=== PATIENT | female | born 1945 | race Caucasian/White ===

== ENCOUNTER 2023-12-01 07:09 | Emergency (ER) | payer MEDICARE, OTHER, SELFPAY ==
[2023-12-01 07:15] VITALS: BP 99/49
[2023-12-01 07:25] VITALS: BP 93/70
[2023-12-01 07:31] VITALS: BP 94/48
[2023-12-01 07:38] VITALS: BMI 29.7
--- NOTE | 2023-12-01 07:40 | ED.GENMED ---
History of Present Illness
<Antonio Walter MD, Resident - Last Filed: 12/01/23 13:27>
General
Chief Complaint: Heart Rate Problem
Source: patient and records
Time Seen by Provider: 12/01/23 07:24
Travel History
Have you traveled to any high risk areas for coronavirus over the past 14 days?: No
Have you had any contact with someone who has COVID-19?: No
Do you have any symptoms of coronavirus? Fever > 100 degrees, chills, cough, shortness of breath, sore throat, loss of taste or smell, muscle aches, or headache?: No
History of Present Illness
History of Present Illness:
Theodora De Santiago, 78-year-old female with paroxysmal atrial fibrillation, has had palpitations since last night. She usually takes diltiazem 60 mg but took 120 mg before going to bed since she felt that she was in atrial fibrillation. She woke up with
persistent symptoms at 3 AM and again at 4-5 AM; took diltiazem 60 mg each time, for a total of 240 mg diltiazem since last night. Continues to experience 'irregular heart beats' at present. Denies shortness of breath, lightheadedness, dizziness,
cough, chest pain/tightness, blurry vision, balancing difficulties, extremity edema or fatigue. Denies recent illnesses or changes to her medications. She did take apixaban this morning before coming to the emergency.
Past History
<Antonio Walter MD, Resident - Last Filed: 12/01/23 13:27>
Past History
ED Past Medical History: Arrthythmia (paroxysmal atrial fibrillation), HTN, Hypercholesterolemia, Psychiatric (anxiety) and Other (OA)
Social History
Tobacco: Non-smoker
Alcohol: Occasional
Drug: None
Personal:
Living: with family
Employment: Retired
Review of Systems
<Antonio Walter MD, Resident - Last Filed: 12/01/23 13:27>
Review of Systems
All Other Systems: Not applicable
Constitutional: Reports no symptoms
EENT: Reports no symptoms
Respiratory: Reports no symptoms
Cardiac: Reports palpitations
ABD/GI: Reports no symptoms
: Reports no symptoms
Musculoskeletal: Reports no symptoms
Skin: Reports no symptoms
Neurological: Reports no symptoms
Endocrine: Reports no symptoms
Hematologic/Lymphatic: Reports no symptoms
Psychiatric: Reports no symptoms
Phy Exam
<Antonio Walter MD, Resident - Last Filed: 12/01/23 13:27>
General Physical Exam
General Presentation: well appearing and no apparent distress
General Skin: warm and dry
General Habitus: normal
General Mental: alert
General Hydration: appears well hydrated
ENT Exam
ENT Exam: EOMI, pharynx normal, neck supple and normocephalic
Eye Exam
Eye Exam: PERRL, cornea clear and conjunctiva normal
Cardiovascular Exam
Cardiovascular Exam: no edema, no murmur, normal peripheral pulses and bradycardia
Pulmonary Exam
Pulmonary Exam: lungs clear, no respiratory distress, no rales, no crackles, no rhonchi, no stridor, no wheezing and no cough
Gastrointestinal Exam
Gastrointestinal Exam: normal bowel sounds, non tender, soft, no organomegaly, no pulsatile mass and non distended
Neurological Exam
Neurological Exam: alert, oriented x3, no motor deficits and speech normal
Musculoskeletal Exam
Musculoskeletal Exam: full ROM and no edema
Skin Exam
Skin Exam: normal color, warm/dry, no rash and no petechia
Psychiatric Exam
Psychiatric Exam: normal mood/affect
Course
<Antonio Walter MD, Resident - Last Filed: 12/01/23 13:27>
Orders/Labs/Results
Orders:
Orders
12/01/23 07:10
Electrocardiogram (*1) Urgent
Reason for Study: Atrial Fibrillation
EKG- Treatment ONCE
12/01/23 07:44
CMP [Comprehensive Metabolic Panel] Urgent
Complete Blood Count/With Diff Urgent
Magnesium Urgent
Comment: ADD ON
TSH Reflex To Free T4 Urgent
Comment: ADD ON
12/01/23 08:02
Add On- LAB Urgent
Tests Added?: Mg; TSH with reflex to T4
Abnormal Lab Results
12/01/23
07:44
Absolute Monos (auto) 0.9 H 10^3/uL
(0.1-0.6)
Monocytes % 11.2 H %
(1.7-9.3)
Chloride 97 L mmol/L
(98-107)
Glucose 109 H mg/dl
(70-99)
12/01/23 07:44
12/01/23 07:44
Vital Signs
Initial and Last Documented VS:
Initial Vital Signs
Temp Pulse Resp BP Pulse Ox
98.1 F 62 18 99/49 97
12/01/23 07:15 12/01/23 07:15 12/01/23 07:15 12/01/23 07:15 12/01/23 07:15
Last Documented Vital Signs
Temp Pulse Resp BP Pulse Ox
98.1 F 56 10 114/59 99
12/01/23 07:15 12/01/23 10:45 12/01/23 10:45 12/01/23 10:00 12/01/23 10:45
<Ulises Purdy MD - Last Filed: 12/01/23 13:43>
Orders/Labs/Results
Orders:
Orders
12/01/23 07:10
Electrocardiogram (*1) Urgent
Reason for Study: Atrial Fibrillation
EKG- Treatment ONCE
12/01/23 07:44
CMP [Comprehensive Metabolic Panel] Urgent
Complete Blood Count/With Diff Urgent
Magnesium Urgent
Comment: ADD ON
TSH Reflex To Free T4 Urgent
Comment: ADD ON
12/01/23 08:02
Add On- LAB Urgent
Tests Added?: Mg; TSH with reflex to T4
Abnormal Lab Results
12/01/23
07:44
Absolute Monos (auto) 0.9 H 10^3/uL
(0.1-0.6)
Monocytes % 11.2 H %
(1.7-9.3)
Chloride 97 L mmol/L
(98-107)
Glucose 109 H mg/dl
(70-99)
12/01/23 07:44
12/01/23 07:44
Vital Signs
Initial and Last Documented VS:
Initial Vital Signs
Temp Pulse Resp BP Pulse Ox
98.1 F 62 18 99/49 97
12/01/23 07:15 12/01/23 07:15 12/01/23 07:15 12/01/23 07:15 12/01/23 07:15
Last Documented Vital Signs
Temp Pulse Resp BP Pulse Ox
98.1 F 56 10 114/59 99
12/01/23 07:15 12/01/23 10:45 12/01/23 10:45 12/01/23 10:00 12/01/23 10:45
<Antonio Walter MD, Resident - Last Filed: 12/01/23 13:27>
MDM/Problems Addressed
Differential Diagnosis Includes:
Atrial fibrillation; A-V block; other arrhythmias
MDM/Problems Addressed:
Patient has remained asymptomatic and vitals are normalizing; improved heart rate and blood pressure. Discussed with Dr. Sorin Galloway, on-call physician from her cardiology practice. Discussed with the patient that since she is asymptomatic,
she can follow-up with their office outpatient as soon as possible to discuss this.
<Antonio Walter MD, Resident - Last Filed: 12/01/23 13:27>
*Critical Care Note
Total Time (30-74mins, 75-104mins- exclusive of procedures): Not Applicable
ED Attending Note
<Antonio Walter MD, Resident - Last Filed: 12/01/23 13:27>
-
Portions of this chart may have been created with voice recognition software.� Occasional wrong word or��sound alike� substitutions may have occurred due to the inherent limitations of voice recognition software.
<Ulises Purdy MD - Last Filed: 12/01/23 13:43>
ED Attending Note
Patient seen and examined by attending physician: Yes
I performed a history and physical exam of patient and discussed management with resident, I reviewed resident's note and agree with documented findings and plan of care.: Yes
ED Attending Note:
Patient with history of paroxysmal atrial fibrillation on Eliquis, atenolol, and Cardizem, presents to ED secondary to persistent irregular heartbeat sensation since last night, around 10 PM. Patient states that she was in her usual state of health
when she felt palpitations and irregular heartbeat. Patient proceeded to take her evening dose of Cardizem (60 mg), as well as additional 60 mg, had been recommended by her bolt threader in the past. Patient went to sleep and woke up at 3 AM with
similar sensation, at which point she additional 60 mg. She went to take to sleep and got up couple hours later with continual symptoms. As such, patient proceeded to take additional 60 mg as well as her a.m. dose of Eliquis. When her symptoms
persisted, patient decided come to ED for an evaluation. Patient denies associated chest pain, shortness of breath, dizziness, or nausea sensation. Patient states that she goes into atrial fibrillation rhythm approximate 2-3 times a year, but
spontaneously converts when she takes extra tablet of Cardizem. Denies recent travel or surgery. Denies recent illness. Denies recent change in medications or diet.
Physical Exam
General: no apparent distress, not acutely ill. afebrile
Head: nc/at. eomi
Neck: supple. no meningeal signs.
Heart: irregularly irregular, bradycardic, no murmur. equal radial pulses.
Lungs: no acute respiratory distress. clear bilaterally
Abdomen: normal bowel sounds. not tender.
Neuro: alert and oriented. no focal neurological deficits
Skin: no rash
Psychiatric: well kept. interactive and cooperative
Extremities: no edema. no calf tenderness.
Upon arrival, patient found to be mildly hypotensive and bradycardic, likely secondary to multiple extra tablets of Cardizem taken prior to arrival. However, patient is awake, alert, and without any distress. Will continue to observe, check blood
work, and discuss with cardiology afterwards.
Patient remains asymptomatic with improved blood pressure and heart rate during observation. Discussed with on-call bolt threader, Dr. Galloway, who does not recommend cardioversion at this time. Recommends continuing her outpatient medication
along with an outpatient cardiology follow-up. Patient expresses understanding of discharge, including instructions to return to ED with any concerning symptoms, i.e. chest pain, shortness of breath, dizziness nausea, weakness.
Discharge Plan
Departure
Patient Disposition: Home (Routine Discharge)
Date of Disposition: 12/01/23
Time of Disposition: 10:22
Patient with high blood pressure during this ER visit?: No
Condition: Good
Discharge Problem:
Atrial fibrillation with slow ventricular response
Instructions: Atrial Fibrillation (DC)
Prescriptions:
No Action
alprazolam 0.25 MG tablet
0.5 mg PO Q8HPRN PRN (Reason: anxiety)
buspirone 5 MG tablet
5 mg PO BID
atenolol 25 MG tablet
25 mg PO DAILY
simvastatin 20 MG tablet
20 mg PO DAILY
lisinopril 10 MG tablet
10 mg PO DAILY
multivitamin [One Daily] 1 EACH tablet
1 ea PO DAILY
calcium carbonate [calcium] 500 MG tablet
500 mg PO DAILY
aspirin 81 MG tablet,chewable
81 mg PO DAILY
Loratadine [Claritin] 10 MG Tablet
10 mg PO DAILYPRN PRN (Reason: allergies)
apixaban [Eliquis] 5 MG tablet
5 mg PO BID Qty: 30 0RF
diltiazem HCl 120 MG tablet
120 mg PO DAILY Qty: 30 0RF
Referrals:
Sorin Galloway MD [Active] - Call in 1-3 days for appt
Madelin Bolanos DO [Family Provider] - Call in 1-3 days for appt
Activity Restrictions/Additional Instructions:
Please call to schedule a follow-up with your cardiology and primary office within 1 week. Please return to the emergency for any symptoms such as lightheadedness, dizziness, shortness of breath, chest pain/tightness, fatigue, weakness, blurry
vision or difficulty breathing.
Interventions
Interventions:
*Risk Screen - Suicide Last Done: 12/01/23 07:13
*General Assessment Last Done: 12/01/23 07:13
*Neglect/Abuse Screening Last Done: 12/01/23 07:13
ED- Fall Risk Assessment Last Done: 12/01/23 07:39
*ED COVID-19 Vaccine History Last Done: 12/01/23 07:39
*Nursing Disposition Last Done: 12/01/23 11:07
ED- Cardiac Assessment Last Done: 12/01/23 09:05
ED- Pulmonary Assessment Last Done: 12/01/23 09:05
Discharge Date and Time
Discharge Date/Time: 12/01/23 11:07
Print Language: THAI
[2023-12-01 08:00] VITALS: BP 99/55
[2023-12-01 08:06] LABS: % Basophils 0.4 % (0-2); % Eosinophils 1.6 % (0-6); % Immature Granulocytes 0.4 % (0-0.5); % Lymphocytes 26.3 % (20.5-51.1); % Monocytes 11.2 % (1.7-9.3); % Neutrophils 60.1 % (42.2-75.2); Absolute Eosinophils 0.1 10^3/uL (0-0.7); Absolute Lymphocytes 2.2 10^3/uL (1.2-3.4); Absolute Monocytes 0.9 10^3/uL (0.1-0.6); Hematocrit 41.2 % (37.0-47.0); Hemoglobin 13.8 g/dL (12.0-16.0); Mean Corp Hgb Conc. 33.5 g/dL (33.0-37.0); Mean Corpuscular Hgb 29.1 pg (27.0-31.0); Mean Corpuscular Volume 86.7 fL (81.0-99.0); Mean Platelet Volume 9.7 fL (7.4-10.4); Nucleated Red Blood Cells % 0 %; Platelet Count 236 10^3/uL (130-400); Red Blood Cell Count 4.75 10^6/uL (4.20-5.40); Red Cell Dist. Width 13.5 % (11.5-14.5); White Blood Cell Count 8.3 10^3/uL (4.8-10.8)
[2023-12-01 08:20] LABS: ALT (SGPT) 22 U/L (0-35); AST (SGOT) 25 U/L (14-36); Albumin 4.1 g/dl (3.5-5.0); Alkaline Phosphatase 75 U/L (38-126); Blood Urea Nitrogen 17 mg/dl (7-17); Calcium 9.4 mg/dl (8.4-10.2); Carbon Dioxide 28 mmol/L (22-30); Chloride 97 mmol/L (98-107); Estimated Creatinine Clearance 59 ml/min; Glucose 109 mg/dl (70-99); Magnesium 1.8 mg/dl (1.6-2.3); Potassium 4.3 mmol/L (3.5-5.1); Sodium 135 mmol/L (135-145); Total Bilirubin 0.9 mg/dl (0.2-1.3); Total Protein 6.4 g/dl (6.3-8.2); eGFR > 60.00
[2023-12-01 09:00] VITALS: BP 108/62
[2023-12-01 09:03] LABS: TSH Reflex To Free T4 2.15 uIU/ml (0.47-4.68)
[2023-12-01 10:00] VITALS: BP 114/59
== END 2023-12-01 11:07 | disposition home or self-care (01) ==
LOC: EMR 07:09
PROVIDERS: EMERGENCY PHYSICIAN Emergency Medicine; FAMILY PHYSICIAN Family Medicine
DX: I48.91 Unspecified atrial fibrillation (principal); I10 Essential (primary) hypertension; E78.00 Pure hypercholesterolemia, unspecified; Z79.899 Other long term (current) drug therapy
CPT/HCPCS: 99284; 80053; 83735; 84443; 85025; 93005

== ENCOUNTER 2024-05-10 10:30 | Day surgery (SDC) | payer MEDICARE, OTHER, SELFPAY ==
[2024-04-20 11:33] LABS: % Basophils 0.4 % (0-2); % Eosinophils 1.9 % (0-6); % Immature Granulocytes 0.2 % (0-0.5); % Lymphocytes 24.1 % (20.5-51.1); % Monocytes 11.9 % (1.7-9.3); % Neutrophils 61.5 % (42.2-75.2); Absolute Eosinophils 0.1 10^3/uL (0-0.7); Absolute Lymphocytes 1.4 10^3/uL (1.2-3.4); Absolute Monocytes 0.7 10^3/uL (0.1-0.6); Absolute Neutrophils 3.5 10^3/uL (1.4-6.5); Hemoglobin 14.3 g/dL (12.0-16.0); Mean Corp Hgb Conc. 32.5 g/dL (33.0-37.0); Mean Corpuscular Volume 89.2 fL (81.0-99.0); Mean Platelet Volume 9.8 fL (7.4-10.4); Nucleated Red Blood Cells % 0 %; Platelet Count 210 10^3/uL (130-400); Red Blood Cell Count 4.93 10^6/uL (4.20-5.40); Red Cell Dist. Width 13.6 % (11.5-14.5); White Blood Cell Count 5.7 10^3/uL (4.8-10.8)
[2024-04-20 11:49] LABS: ALT (SGPT) 18 U/L (0-35); AST (SGOT) 24 U/L (14-36); Albumin 4.2 g/dl (3.5-5.0); Alkaline Phosphatase 69 U/L (38-126); Blood Urea Nitrogen 17 mg/dl (7-17); Calcium 9.8 mg/dl (8.4-10.2); Carbon Dioxide 32 mmol/L (22-30); Chloride 99 mmol/L (98-107); Glucose 85 mg/dl (70-99); Potassium 4.9 mmol/L (3.5-5.1); Sodium 136 mmol/L (135-145); Total Bilirubin 0.9 mg/dl (0.2-1.3); Total Protein 6.8 g/dl (6.3-8.2); eGFR > 60.00
[2024-04-20 13:58] VITALS: BMI 30.6
[2024-05-10] VITALS (12 sets, daily range): BP systolic 117–168; BP diastolic 66–88; BMI 29.4
[2024-05-10] MEDS: TYLENOL 1000 MG PO (11:31)
--- NOTE | 2024-05-10 14:20 | ITS.CL.ABL ---
Male Impersonator - Ablation
Ablation
Procedure Report:
AFIB / A flutter ablation:
Ms. De Santiago is a very pleasant 80 yr old woman with medical history significant for symptomatic paroxysmal atrial fibrillation is here in the EP lab for atrial fibrillation / flutter ablation
Date of Procedure:
05/10/2024
Indications:
Symptomatic paroxysmal atrial fibrillation
Pre-Operative Diagnosis:
Paroxysmal atrial fibrillation
Post-Operative Diagnosis:
Paroxysmal atrial fibrillation
Procedure Performed:
Atrial fibrillation ablation with wide area circumferential ablation (WACA) approach for pulmonary vein isolation
Posterior wall isolation
Performing Physician:
Freddy Lopez MD
Assistants:
EP staff
Anesthesia:
See anesthesia records
Detailed Description of the Procedure:
Written informed consent was obtained from the patient after a full explanation of the risks and benefits of the procedure including the risks of sedation and anesthesia.
The patient was brought to the electrophysiology laboratory in stable condition in fasting state. Continuous electrocardiographic and hemodynamic monitoring was initiated.
The initial rhythm was normal sinus.
The procedure site was meticulously prepared with surgical scrub and allowed to dry with no pooling. Sterile draping was applied to cover the procedure site. The image intensifier was draped with sterile bag and positioned over the patient. After
infusion of local anesthetic, vascular access was obtained under ultrasound guidance and sheaths were placed over guide wire as detailed below.
The images of the ultrasound of the femoral vessels were stored in patient chart.
Sheath and Catheter Placement:
. The following catheters / sheaths were placed
Sheaths:
��������� Agilis sheath in right femoral vein upgraded from 10Fr in right femoral vein
��������� 9Fr in left femoral vein
Catheters:
��������� The Affera Sphere 9 catheter -bidirectional D/F� - at locations of HRA, RV, LA and LV.
��������� ICE catheter -AccuNav -� at locations of RA, SVC, and RV.
Heparin was initiated after the access was obtained.
Intracardiac ECHO:
An 8-Russian AcuNav intracardiac ECHO (ICE) probe was advanced through the 9-Russian sheath in the left femoral vein into the right atrium under fluoroscopic and ICE ultrasound image guidance and a baseline ECHO study was performed. The left atrial
size was dilated. There was trace tricuspid regurgitation. The aortic valve was grossly normal. There was normal left ventricular systolic function. There is no pericardial effusion. The JOSE LUIS has baseline low velocities. The pulmonary had good flow
identified.
During the procedure, ICE was used for monitoring of complications, guidance of trans-septal puncture, monitor the catheter position and tracking ablation lesions. No change in the pericardial space noted throughout the procedure.
Trans-septal Puncture:
Heparin was initiated and infused to maintain appropriate ACT. A J-tipped guidewire was advanced through into the superior vena cava under fluoroscopic and ICE guidance. The Agilis sheath was advanced into the superior vena cava over a guidewire.
The BRK needle was placed inside the Agilis sheath.� The apparatus was withdrawn until it was in contact with the fossa ovalis. The position was adjusted based on fluoroscopy and ultrasound images from ICE. Under fluoroscopic, hemodynamic and ICE
ultrasound guidance, left atrium was cannulated by advancing the needle. Once atrial septum was cannulated, the needle was pulled back and the guide wire was advanced through the needle into the left atrium. The guide wire was advanced into the left
superior pulmonary vein. Both the sheath and the dilator was advanced into the left atrium. The dilator with the needle was withdrawn. Blood was aspirated from the Agilis sheath and arterial blood confirmed. The sheath was flushed. Saline injection
noted into the left atrium on ICE. The waveform of the LA pressure was recorded. The mapping catheter was advanced in the Agilis sheath into the left pulmonary vein.
3D Electroanatomic Mapping:
Using the Sphere 9 Affera catheter advanced through Agilis sheath into the left atrium, an electroanatomic map (EAM) of the left atrium was created using Valuation Appa� mapping system with [employer]-sensing software. The map was used for localization of catheter
position and tacking of ablation lesions. The EAM of the left atrium showed a total of 4 PVs with two left and the two right sided pulmonary veins with all electrically connected to the body of the LA. It showed scattered scar on the posterior and
anterior sigala of the LA. The LA was dilated in size.
Following the EAM, preparation were made for ablation.
Ablation:
Ablation # 1: Pulmonary vein Isolation:
Glycopyrrolate 0.2 mg was given prior to the placement of ablation.
Pulsed field ablation was performed using an open irrigation, bidirectional, contact sensing, dual energy ablation catheter (Valuation Appa sphere -9) by completing the circumferential lesions around the left and right pulmonary veins achieving pulmonary
vein isolation.
The right pulmonary veins had large omega and significant signals pre-ablation. The risk of epicardial connections was high and decision was made to create a carinal line as well.
Confirmation of the PVI and bidirectional block:
Following achievement of entrance block at the pulmonary veins, pacing from the Sphere 9 affera catheter in each of the four veins at 20 milliamps for 4 milliseconds showed entrance and exit block.
The LA was mapped with The Valuation Appa� mapping system with [employer] software in sinus rhythm confirming the line of block at the ablation lesions lines.
There was extensive scar noted in the posterior wall with slowing of conduction making a substance for reentry flutter.
Ablation # 2: Roof line Formation:
There was a clear channel of electrical activity left in the posterior wall with multiple CFAE and AF areas on the roof and ablation in that area increased the risk of atrial flutter and decision was made to create a roof line to block a slow
conduction. A set of pulsed field ablations were placed on the roof line connecting the left superior pulmonary vein ablation lesions to the right superior pulmonary vein lesions rings.
Ablation # 3: Posterior wall isolation with the Box lesions set Formation:
There was a significant fractionation seen in the posterior wall and LA AF foci along with CFAE made it clear as the posterior wall is critical in maintaining the atrial fibrillation and the decision was made to isolate the posterior wall by
creating a �Box� lesions.
A set of Pulsed field ablations were placed on the floor line connecting the left inferior pulmonary vein ablation lesions to the right inferior pulmonary vein lesions rings.
The sphere 9 in the posterior wall showed entrance block and the pacing from the posterior wall showed no exit from the box lesions confirming the exit block.
EP study:
Sinus Node Function: The sinus node functions are within acceptable normal range.
Atrioventricular Malissa Function: �Normal AV conduction noted.
Procedure End
ICE study was done again that showed no epicardial accumulation. No complications noted.
Following the completion of the EP study, catheters were removed. Protamine 40 mg was given at the end of the procedure and ACT was checked repeatedly. The sheaths were removed and hemostasis achieved with VASCADE and manual compression after
acceptable ACT is achieved.
Left atrial Pressure:
Pre-Procedure: Mean LA pressure was 7mmHg
Post-Procedure: Mean LA pressure was 10mmHg
Post-Procedure: Mean RA pressure was 4mmHg
Fluoro Time:
0
Estimated Blood loss:
<10 cc
Specimens Removed:
None.
Implants / Devices:
None
Urine output:
None
Packs / Drains/ Tubes:
None
Instrument / Sponge Count Correct:
Yes
Complications of the Procedure:
None
Condition of Patient at Time of Transfer:
Hemodynamically stable with no neurological or vascular compromise.
Summary:
��������� Successful atrial fibrillation ablation with circumferential bidirectional line of block at pulmonary venin antra (Pulmonary vein isolation), roof flutter line creation, Posterior wall isolation.
Figures from the Procedure:
Figure 1: The electroanatomic mapping (EAM) of the left atrium with bipolar voltage (purple indicates normal electrical activity with red as no myocardial muscle electric activity indicating a line of block or scar.
[2024-05-10 15:27] LABS: ACT-LR - POC > 397 Seconds (116-155)
[2024-05-10 15:27] LABS: ACT-LR - POC > 397 Seconds (116-155)
[2024-05-10 15:27] LABS: ACT-LR - POC > 397 Seconds (116-155)
[2024-05-10] MEDS: ANESTHETIC LOZENGE 1 LOZENGE PO (15:30)
--- NOTE | 2024-05-10 16:27 | W.PN.UPDATE ---
Update Note
Progress Note Update
78 yo WF s/p PVI (same day). She denies cp, sob, talib diet, R fem c/d/i Vascade closure tiny area of drainage noted, soft, EKG SR 1deg AVB. She will resume Eliquis at 8pm tonight and continue diltiazem. Activity restrictions reviewed. She will f/u
Dr. Aldrich in 2-4 weeks. She is for d/c home after 6pm if groin stable and able to void.
[2024-05-10] MEDS: TYLENOL 650 MG PO (17:31)
== END 2024-05-10 19:14 | disposition home or self-care (01) ==
LOC: CATH 10:30
PROVIDERS: ATTENDING PHYSICIAN Internal Medicine Cardiovascular Disease; FAMILY PHYSICIAN Family Medicine; OTHER PHYSICIAN Internal Medicine
DX: I48.0 Paroxysmal atrial fibrillation (principal); I48.92 Unspecified atrial flutter; I10 Essential (primary) hypertension; E78.00 Pure hypercholesterolemia, unspecified; E78.5 Hyperlipidemia, unspecified; Z79.01 Long term (current) use of anticoagulants; Z79.899 Other long term (current) drug therapy
CPT/HCPCS: C1769; C1766; C1892; C1759; C1733; 36415; 76937; 80053; 85025; 85347; 86850; 86900; 86901; 93005; 93655; 93656; 93657; C1760